=== PATIENT | female | born 1990 | race Caucasian/White ===

== ENCOUNTER 2024-09-28 17:48 | Emergency (ER) | payer OTHER, SELFPAY ==
--- NOTE | 2024-09-28 17:57 | ED.GENMED ---
ED Provider Triage
-
Patient seen by provider in Triage?: Seen in Triage
Attestation: A medical screening examination has been initiated by a qualified medical provider. Based on the assessment performed at this time, it has been determined that an emergent medical condition may exist and the patient has been informed
that further medical evaluation and possible additional diagnostic testing may be needed.
HPI: 34-year-old female presenting 24 hours after a fall. She claims that she took sleeping pills went to the bathroom felt lightheaded fell to the ground. Hit her face.
GENERAL: Alert , in no apparent distress
EYE: No visual abnormalities.
NECK: Trachea midline
ENT: No visible abnormalities.
LUNGS: No acute respiratory distress
NEUROLOGICAL: Alert and oriented
SKIN: Skin intact. No visible changes.
MUSCULOSKELETAL: Moving extremities normally
PSYCH: Normal and appropriate interaction.
This is a medical evaluation conducted in person to initiate diagnostic evaluation and provide initial therapeutics. Please see further documentation by the treating clinician.
History of Present Illness
General
Chief Complaint: Fall
Source: patient
Exam Limitations: none
Nursing documentation reviewed up to this point in time: agreed with
History of Present Illness
History of Present Illness:
34-year-old female presenting to the emergency department today with concerns after falling 2 days ago. She claims that she took sleeping pills and was up later than she typically is after taking the pills fell and hit her face. At the time she
did not specifically additionally blackout after falling. Was able to sleep through the night had some ongoing mild symptoms with some photophobia and phonophobia the next day no significant progressive at this point. No vomiting. No numbness or
weakness. No neck pain. Not on blood thinners.
Review of Systems
Review of Systems
Allergies reviewed?: Yes
All Other Systems: ROS reviewed and negative except as documented in HPI and ROS
Phy Exam
Physical Exam
Physical Exam:
GENERAL: Alert , in no apparent distress
EYE: pupils equal and reactive
NECK: Supple, no significant adenopathy.
ENT: o/p clr, mmm.
CARDIAC: Regular rate and rhythm .
LUNGS: Clear breath sounds bilaterally, no acute respiratory distress, no wheezes/rales/rhonchi
ABDOMEN: Soft, without focal tenderness, no r/g, no cvat
NEUROLOGICAL: Alert and oriented, no focal neuro deficits 5 out of 5 upper and lower extremity strength normal sensation with palpating bilaterally normal finger-nose and [id number] no pronator drift
SKIN: Warm and dry, skin intact.
MUSCULOSKELETAL: No edema, well perfused.
PSYCH: Normal and appropriate interaction.
MDM/Problems Addressed
MDM/Problems Addressed:
34-year-old female presenting to the emergency department after a fall 2 days ago hitting her face. She has had some ongoing vague headache nausea since. Here she is generally well-appearing interactive fully alert and oriented. Normal neurologic
evaluation. Likelihood of brain bleed or significant fracture very unlikely. There was discussion about appropriate treatment for concussion with. Return precautions given otherwise stable for outpatient management.
*Critical Care Note
Total Time (30-74mins, 75-104mins- exclusive of procedures): Not Applicable
ED Attending Note
-
Portions of this chart may have been created with voice recognition software.� Occasional wrong word or��sound alike� substitutions may have occurred due to the inherent limitations of voice recognition software.
Discharge Plan
Departure
Patient Disposition: Home (Routine Discharge)
Date of Disposition: 09/28/24
Time of Disposition: 18:04
Patient with high blood pressure during this ER visit?: No
Condition: Good
Covid-19: Not Applicable
Discharge Problem:
Concussion
Instructions: Concussion, Adult (DC)
Stand Alone Forms: Return to Work
Activity Restrictions/Additional Instructions:
You came to the emergency department today with concerns of symptoms consistent with a concussion. Please gradually increase activity over the next few days. If symptoms are worsening with activity please decrease activity. Return for any
worsening, new or concerning symptoms.
Discharge Date and Time
Print Language: CZECH
[2024-09-28 17:58] VITALS: BP 102/73
== END 2024-09-28 18:14 | disposition home or self-care (01) ==
LOC: EMR 17:48
PROVIDERS: EMERGENCY PHYSICIAN Emergency Medicine
DX: S06.0XAA Concussion with loss of consciousness status unknown, initial encounter (principal); W19.XXXA Unspecified fall, initial encounter
CPT/HCPCS: 99282